=== PATIENT | male | born 1990 | race Caucasian/White ===

== ENCOUNTER 2023-10-04 15:03 | Emergency (ER) | payer BC ==
[~2023-10-04] VITALS: Ht 165.1 cm; Wt 72.6 kg
== END 2023-10-04 18:41 | disposition left against medical advice (07) ==
LOC: ED 15:03
DX: S69.91XA Unspecified injury of right wrist, hand and finger(s), initial encounter (principal); S09.90XA Unspecified injury of head, initial encounter; Z53.21 Procedure and treatment not carried out due to patient leaving prior to being seen by health care provider; W50.0XXA Accidental hit or strike by another person, initial encounter; Y93.89 Activity, other specified; Y92.89 Other specified places as the place of occurrence of the external cause; Y99.8 Other external cause status